=== PATIENT | female | born 1960 | race Caucasian/White ===

== ENCOUNTER 2017-08-12 17:00 | Emergency (ER) | payer MEDICAID ==
[2017-08-12 17:38] LABS: Basophils % (Auto) 0.6 % (0.0-1.8); Eosinophils # (Auto) 0.1 K/mm3 (0.0-0.4); Eosinophils % (Auto) 1.2 % (0.0-4.3); Hematocrit 39.9 % (30.3-42.9); Hemoglobin 13.4 gm/dl (10.1-14.3); Lymphocytes # (Auto) 2.3 K/mm3 (1.2-5.4); Lymphocytes % (Auto) 32.7 % (13.4-35.0); Mean Corpuscular HGB Conc 34 % (30-34); Mean Corpuscular Hemoglobin 30 pg (28-32); Mean Corpuscular Volume 90 fl (79-97); Monocytes # (Auto) 0.6 K/mm3 (0.0-0.8); Platelet Count 222 K/mm3 (140-440); Red Blood Count 4.42 M/mm3 (3.65-5.03); Red Cell Distribution Width 13.1 % (13.2-15.2)
[2017-08-12 17:56] LABS: BUN/Creatinine Ratio 18; Blood Urea Nitrogen 11 mg/dL (7-17); Hemolysis Index 23
[2017-08-12] MEDS ORDERED: K-DUR PO ONE (23:34)
--- NOTE | 2017-08-13 00:28 | Emergency Department Report ---
ED Chest Pain HPI - General Chief Complaint: Chest Pain Stated Complaint: CHEST UNCOMFORTABLE Time Seen by Provider: 08/12/17 23:13 Source: patient Mode of arrival: Ambulatory Limitations: Language Barrier - History of Present Illness Initial Comments: 57-year-old female with a past medical history of hypertension presents to the hospital with complains of chest pain 3 days. Patient had intermittent sharp pain in the middle of her chest. Patient is pain-free at this time. Patient states the pain occurs when she is stressed and when she argues with her significant other. She denies shortness of breath, nausea, vomiting, or diaphoresis. No complaints of recent travel, cough, fever, calf tenderness or edema. Patient is compliant with her blood pressure medication. Patient complains of some anxiety symptoms with episodes. Denies cad family hx. 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 - Related Data Previous Rx's Medication Instructions Recorded Last Taken Type Ibuprofen [Motrin] 600 mg PO Q8H PRN #30 tablet 08/13/17 Unknown Rx Allergies Allergy/AdvReac Type Severity Reaction Status Date / Time No Known Allergies Allergy Unverified 08/12/17 17:08 Heart Score - HEART Score History: Slightly suspicious EKG: Non-specific Age: 45-65 Risk factors: 1-2 risk factors Troponin: < normal limit HEART Score: 3 ED Review of Systems ROS: Stated complaint: CHEST UNCOMFORTABLE Other details as noted in HPI Comment: All other systems reviewed and negative Other: Constitutional: No fevers chills Eyes: No eye pain visual changes ENT: No ear pain or throat pain Neck: Denies pain Respiratory: Denies cough wheezing shortness of breath Cardiovascular: Denies palpitations, syncope GI: Denies abdominal pain, nausea, vomiting, diarrhea : Denies dysuria Musculoskeletal: Denies back pain Skin: Denies rash, lesions, erythema Neurologic: Denies headache, numbness, weakness Psychiatric: Denies suicidal ideation, hallucinations ED Past Medical Hx - Past Medical History Hx Hypertension: Yes - Surgical History Past Surgical History?: Yes Additional Surgical History: abdominal surgery - Social History Smoking Status: Never Smoker Substance Use Type: None - Medications Home Medications: Home Medications Medication Instructions Recorded Confirmed Last Taken Type Ibuprofen [Motrin] 600 mg PO Q8H PRN #30 tablet 08/13/17 Unknown Rx ED Physical Exam - General Limitations: Language Barrier - Other Other exam information: General: No limitations, patient is alert in no acute distress Head exam: Atraumatic, normocephalic Eyes exam: Normal appearance ENT: Moist mucous membrane, normal oropharynx Neck exam: Normal inspection, full range of motion, no meningismus nontender Respiratory exam: Clear to auscultation bilateral, no wheezes, rales, crackles Cardiovascular: Normal rate and rhythm, normal heart sounds Abdomen: Soft, nondistended, and nontender, with normal bowel sounds, no rebound, or guarding Extremity: Full range of motion normal inspection no deformity, no calf tenderness or edema Back: Normal Inspection, full range of motion, no tenderness Neurologic: Alert, oriented x3, cranial nerves intact, no motor or sensory deficit Psychiatric: normal affect, normal mood Skin: Warm, dry, intact ED Course Vital Signs 08/12/17 17:08 Temperature 98 F Pulse Rate 93 H Respiratory 20 Rate Blood Pressure 130/71 O2 Sat by Pulse 98 Oximetry - Reevaluation(s) Reevaluation #1: 08/13/17 00:28 Patient did not have pain so no meds given for pain in the ED. By mouth potassium supplemented BRENNEN score - Brennen Score Age > 65: (0) No Aspirin use within the Past 7 Days: (0) No 3 or more CAD Risk Factors: (0) No 2 or more Angina events in past 24 hrs: (1) Yes Known CAD with more than 50% Stenosis: (0) No Elevated Cardiac Markers: (0) No ST Deviation Greater than 0.5mm: (0) No BRENNEN Score: 1 ED Medical Decision Making - Lab Data Result diagrams: 08/12/17 17:24 08/12/17 17:24 Lab Results 08/12/17 08/12/17 08/12/17 Range/Units 17:24 17:24 20:00 WBC 7.0 (4.5-11.0) K/mm3 RBC 4.42 (3.65-5.03) M/mm3 Hgb 13.4 (10.1-14.3) gm/dl Hct 39.9 (30.3-42.9) % MCV 90 (79-97) fl MCH 30 (28-32) pg MCHC 34 (30-34) % RDW 13.1 L (13.2-15.2) % Plt Count 222 (140-440) K/mm3 Lymph % (Auto) 32.7 (13.4-35.0) % Stearns % (Auto) 9.0 H (0.0-7.3) % Eos % (Auto) 1.2 (0.0-4.3) % Baso % (Auto) 0.6 (0.0-1.8) % Lymph # 2.3 (1.2-5.4) K/mm3 Stearns # 0.6 (0.0-0.8) K/mm3 Eos # 0.1 (0.0-0.4) K/mm3 Baso # 0.0 (0.0-0.1) K/mm3 Seg Neutrophils % 56.5 (40.0-70.0) % Seg Neutrophils # 3.9 (1.8-7.7) K/mm3 Sodium 142 (137-145) mmol/L Potassium 3.5 L (3.6-5.0) mmol/L Chloride 100.2 (98-107) mmol/L Carbon Dioxide 27 (22-30) mmol/L Anion Gap 18 mmol/L BUN 11 (7-17) mg/dL Creatinine 0.6 L (0.7-1.2) mg/dL Estimated GFR > 60 ml/min BUN/Creatinine Ratio 18 % Glucose 135 H (65-100) mg/dL Calcium 9.0 (8.4-10.2) mg/dL Troponin T < 0.010 < 0.010 (0.00-0.029) ng/mL 08/12/17 Range/Units 23:21 WBC (4.5-11.0) K/mm3 RBC (3.65-5.03) M/mm3 Hgb (10.1-14.3) gm/dl Hct (30.3-42.9) % MCV (79-97) fl MCH (28-32) pg MCHC (30-34) % RDW (13.2-15.2) % Plt Count (140-440) K/mm3 Lymph % (Auto) (13.4-35.0) % Stearns % (Auto) (0.0-7.3) % Eos % (Auto) (0.0-4.3) % Baso % (Auto) (0.0-1.8) % Lymph # (1.2-5.4) K/mm3 Stearns # (0.0-0.8) K/mm3 Eos # (0.0-0.4) K/mm3 Baso # (0.0-0.1) K/mm3 Seg Neutrophils % (40.0-70.0) % Seg Neutrophils # (1.8-7.7) K/mm3 Sodium (137-145) mmol/L Potassium (3.6-5.0) mmol/L Chloride (98-107) mmol/L Carbon Dioxide (22-30) mmol/L Anion Gap mmol/L BUN (7-17) mg/dL Creatinine (0.7-1.2) mg/dL Estimated GFR ml/min BUN/Creatinine Ratio % Glucose (65-100) mg/dL Calcium (8.4-10.2) mg/dL Troponin T < 0.010 (0.00-0.029) ng/mL - EKG Data -: EKG Interpreted by Me (early r transition) EKG shows normal: sinus rhythm, axis (11), QRS complexes (89), ST-T waves (flat lat and inf waves) Rate: normal (91) - EKG Data When compared to previous EKG there are: previous EKG unavailable - Radiology Data Radiology results: image reviewed (read by me: cxr naf) - Medical Decision Making She doesn't have any DVT risk factors or symptoms and chest pain is atypical for [place]. She denies any dyspnea or other associated symptoms. Pain-free in the ED. Enzymes negative 3. Patient will be discharged home with PMD follow-up and encouraged to take Motrin as needed for pain - Differential Diagnosis atypical chest pain, stress reaction, PE, AK, unstable angina Critical Care Time: No Critical care attestation.: If time is entered above; I have spent that time in minutes in the direct care of this critically ill patient, excluding procedure time. ED Disposition Clinical Impression: Atypical chest pain, Hypokalemia Disposition: DC-01 TO HOME OR SELFCARE Is pt being admited?: No Does the pt Need Aspirin: No Condition: Stable Instructions: Chest Pain (ED) Additional Instructions: Take Motrin as needed for pain. Return if symptoms worsen. Follow up with your doctor. Follow up with the specialty sales consultant provided for further evaluation Fouke Motrin segn sea necesario para el dolor. Regrese si los sntomas empeoran. Mariola un seguimiento con loyola mdico. Seguimiento con el cardilogo proporcionado para geoffrey evaluacin adicional Prescriptions: Ibuprofen [Motrin] 600 mg PO Q8H PRN #30 tablet PRN Reason: Pain Referrals: PRIMARY CARE,MD [Primary Care Provider] - 3-5 Days EVA SMITH MD [Staff Physician] - 3-5 Days (specialty sales consultant) Time of Disposition: 00:31 Print Language: GREENLANDIC
[2017-08-13 01:02] VITALS: BP 137/76
--- NOTE | 2017-08-13 09:16 | XRay Report ---
Chest 2 views: History: Chest pain. Findings: Normal cardiomediastinal silhouette. Trachea is midline. No consolidation, pneumothorax or pleural effusion. Impression: No acute cardiopulmonary findings.
== END 2017-08-13 01:02 | disposition home or self-care (01) ==
LOC: ED 17:00
DX: R07.89 Other chest pain (principal); E87.6 Hypokalemia; I10 Essential (primary) hypertension
CPT/HCPCS: 36415; 71020; 80048; 84484; 85025; 93005; 93010